=== PATIENT | female | born 1985 | race American Indian/Alaskan Native ===

== ENCOUNTER 2017-06-19 07:44 | Emergency (ER) | payer OTHER ==
--- NOTE | 2017-06-19 08:43 | Emergency Department Report ---
Minor Respiratory - HPI Chief Complaint: Upper Respiratory Infection Stated Complaint: COUGH Time Seen by Provider: 06/19/17 08:41 Duration: 1 week Pain Location: Chest Severity: moderate Minor Respiratory: Yes Rhinorrhea, Yes Able to Tolerate Fluids, Yes Cough, No Sore Throat, No Ear Pain, No Sick Contacts, No Hemoptysis, No Chest Pain, No Shortness of Breath, No Fever Other History: 32-year-old female past medical history none presents with complaint of 5-7 days of persistent cough. Patient states that after coughing fits she get slightly nauseous. States it is keeping her up at night. Denies any sore throat earache diarrhea rash body aches. Patient states she is taking multiple gklc-nin-rulkowd medicines including TheraFlu and Claritin for her symptoms. ED Review of Systems ROS: Stated complaint: COUGH Other details as noted in HPI Constitutional: denies: chills, fever Eyes: denies: eye pain, eye discharge, vision change ENT: denies: ear pain, throat pain Respiratory: cough. denies: shortness of breath, wheezing Cardiovascular: denies: chest pain, palpitations Endocrine: no symptoms reported Gastrointestinal: denies: abdominal pain, nausea, diarrhea Genitourinary: denies: urgency, dysuria, discharge Musculoskeletal: denies: back pain, joint swelling, arthralgia Skin: denies: rash, lesions Neurological: denies: headache, weakness, paresthesias Psychiatric: denies: anxiety, depression Hematological/Lymphatic: denies: easy bleeding, easy bruising ED Past Medical Hx - Past Medical History Previous Medical History?: No - Surgical History Past Surgical History?: No - Social History Smoking Status: Never Smoker Substance Use Type: Alcohol - Medications Home Medications: Home Medications Medication Instructions Recorded Confirmed Last Taken Type Ciprofloxacin HCl [Cipro] 500 mg PO BID 5 Days tablet 12/16/12 Unknown Rx Phenazopyridine [Pyridium] 200 mg PO BID 2 Days tablet 12/16/12 Unknown Rx diphenhydrAMINE [Benadryl] 25 mg PO Q6HR PRN #20 capsule 09/21/13 Unknown Rx predniSONE [Deltasone] 20 mg PO QDAY #5 tab 09/21/13 Unknown Rx Albuterol Sulfate [Ventolin HFA] 2 puff IH Q4H PRN #1 hfa.aer.ad 06/19/17 Unknown Rx Benzonatate [Tessalon Perles] 100 mg PO Q8HR PRN #30 capsule 06/19/17 Unknown Rx Brompheniramine/Pseudoephed/Dm 10 ml PO Q4H PRN #1 syrup 06/19/17 Unknown Rx [Oqebrupwuc-Rhiacawwvtr-Cq Syr] Famotidine [Pepcid] 20 mg PO BID PRN #30 tablet 06/19/17 Unknown Rx predniSONE [Deltasone] 40 mg PO QDAY #8 tab 06/19/17 Unknown Rx Minor Respiratory Exam - Exam General: Vital signs noted. No distress. Alert and acting appropriately. HEENT: Yes Moist Mucous Membranes, No Pharyngeal Erythema, No Pharyngeal Exudates, No Rhinorrhea, No Conjuctival Injection, No Frontal Tenderness, No Maxillary Tenderness Ear: Neither TM Bulge, Neither TM Erythema, Neither EAC Pain, Neither EAC Discharge Neck: Yes Supple, No Adenopathy Lungs: Yes Good Air Exchange (lungs clear to auscultation bilateral lung berman) , No Wheezes, No Ronchi, No Stridor, No Cough, No Labored Respirations, No Retractions, No Use of Accessory Muscles, No Other Abnormal Lung Sounds Heart: Yes Regular, No Murmur Abdomen: Yes Normal Bowel Sounds (abdomen soft nontender nondistended), No Tenderness, No Peritoneal Signs Skin: No Rash, No Edema Neurologic: Alert and oriented, no deficits. Musculoskeletal: Unremarkable. ED Course Vital Signs 06/19/17 08:16 Temperature 89.4 F L Pulse Rate 62 Respiratory 16 Rate Blood Pressure 132/84 O2 Sat by Pulse 97 Oximetry ED Medical Decision Making - Medical Decision Making A/P: URI versus allergic rhinitis 1-Tessalon Perles, Bromfed, Ventolin inhaler, Pepcid, short course prednisone 2-vital signs stable before discharge [email or web address] 4- follow-up with primary care doctor Critical care attestation.: If time is entered above; I have spent that time in minutes in the direct care of this critically ill patient, excluding procedure time. ED Disposition Clinical Impression: Allergic rhinitis Qualifiers: Allergic rhinitis trigger: unspecified Allergic rhinitis seasonality: unspecified seasonality Qualified Code(s): J30.9 - Allergic rhinitis, unspecified Upper respiratory infection Qualifiers: URI type: unspecified URI Qualified Code(s): J06.9 - Acute upper respiratory infection, unspecified Disposition: DC-01 TO HOME OR SELFCARE Is pt being admited?: No Does the pt Need Aspirin: No Condition: Stable Instructions: Cold Symptoms (ED), Allergic Rhinitis (ED), Acute Cough (ED) Prescriptions: Albuterol Sulfate [Ventolin HFA] 2 puff IH Q4H PRN #1 hfa.aer.ad PRN Reason: Shortness Of Breath Benzonatate [Tessalon Perles] 100 mg PO Q8HR PRN #30 capsule PRN Reason: Cough Brompheniramine/Pseudoephed/Dm [Aadspzpkpu-Ewdywqbhgmv-Fv Syr] 10 ml PO Q4H PRN #1 syrup PRN Reason: Cough Famotidine [Pepcid] 20 mg PO BID PRN #30 tablet PRN Reason: Cough predniSONE [Deltasone] 40 mg PO QDAY #8 tab Referrals: [facility] [Provider Group] - 3-5 Days Forms: Work/School Release Form(ED) Time of Disposition: 09:10
--- NOTE | 2017-06-19 08:56 | XRay Report ---
ROUTINE CHEST, TWO VIEWS: HISTORY: Persistent cough. The trachea, heart, mediastinal contour, lung berman and bony thorax are unremarkable. IMPRESSION: Unremarkable chest x-ray.
[2017-06-19 09:28] VITALS: BP 132/78
== END 2017-06-19 09:27 | disposition home or self-care (01) ==
LOC: ED 07:44
DX: J30.9 Allergic rhinitis, unspecified (principal); J06.9 Acute upper respiratory infection, unspecified
CPT/HCPCS: 71046; 99283

== ENCOUNTER 2017-12-03 07:29 | Emergency (ER) | payer SELFPAY ==
[2017-12-03 07:35] VITALS: BP 136/100
[2017-12-03] MEDS ORDERED: NACL 0.9% 1000 ML 1,000 ML IV ONE (07:35)
[2017-12-03 08:13] LABS: Bilirubin,Urine NEG (Negative); Blood,Urine NEG (Negative); Color,Urine Yellow (Yellow); Mucus,Urine FEW /HPF; Protein,Urine <15 mg/dL mg/dL (Negative); Urobilinogen,Urine < 2.0 mg/dL (<2.0)
[2017-12-03 08:15] LABS: Alanine Aminotransferase 11 units/L (7-56); BUN/Creatinine Ratio 10; Blood Urea Nitrogen 7 mg/dL (7-17); Calcium 9.3 mg/dL (8.4-10.2); Hemolysis Index 2
[2017-12-03 08:35] LABS: Hematocrit 35.7 % (30.3-42.9); Hemoglobin 11.1 gm/dl (10.1-14.3); Mean Corpuscular HGB Conc 31 % (30-34); Mean Corpuscular Hemoglobin 23 pg (28-32); Mean Corpuscular Volume 74 fl (79-97); Platelet Count 362 K/mm3 (140-440); Red Blood Count 4.85 M/mm3 (3.65-5.03); Red Cell Distribution Width 17.3 % (13.2-15.2)
[2017-12-03 09:54] LABS: Anisocytosis 1+; Basophils % (Manual) 0 % (0.0-1.8); Eosinophils % (Manual) 0 % (0.0-4.3); Hypochromasia 1+; Total Cells Counted 100
[2017-12-03 09:55] LABS: Platelet Estimate Cons
[2017-12-03] MEDS ORDERED: TORADOL IV ONE (10:17)
--- NOTE | 2017-12-03 10:23 | Emergency Department Report ---
ED General Adult HPI - General Chief complaint: Abdominal Pain Stated complaint: LEFT SIDE PAIN/RASH Time Seen by Provider: 12/03/17 09:48 Source: patient Mode of arrival: Ambulatory Limitations: No Limitations - History of Present Illness Initial comments: Patient presents to the emergency department with a chief complaint of left flank pain that has been on and off for the last 4 weeks. The patient states the pain starts in the left kidney area and radiates into her groin describes it as intense in nature was present. Patient denies any nausea vomiting. Patient also complains of her rash and decrease of her elbow and her back as well. Patient has chest pain, shortness breath, abdominal pain, headache. -: Gradual Location: back (left flank pain) Severity scale (0 -10): 3 Quality: dull Consistency: intermittent Improves with: none Worsens with: none Associated Symptoms: denies other symptoms Treatments Prior to Arrival: none - Related Data Previous Rx's Medication Instructions Recorded Last Taken Type Ciprofloxacin HCl [Cipro] 500 mg PO BID 5 Days tablet 12/16/12 Unknown Rx Phenazopyridine [Pyridium] 200 mg PO BID 2 Days tablet 12/16/12 Unknown Rx diphenhydrAMINE [Benadryl] 25 mg PO Q6HR PRN #20 capsule 09/21/13 Unknown Rx predniSONE [Deltasone] 20 mg PO QDAY #5 tab 09/21/13 Unknown Rx Albuterol Sulfate [Ventolin HFA] 2 puff IH Q4H PRN #1 hfa.aer.ad 06/19/17 Unknown Rx Benzonatate [Tessalon Perles] 100 mg PO Q8HR PRN #30 capsule 06/19/17 Unknown Rx Brompheniramine/Pseudoephed/Dm 10 ml PO Q4H PRN #1 syrup 06/19/17 Unknown Rx [Limavzuxai-Lihnomqmefm-Qa Syr] Famotidine [Pepcid] 20 mg PO BID PRN #30 tablet 06/19/17 Unknown Rx predniSONE [Deltasone] 40 mg PO QDAY #8 tab 06/19/17 Unknown Rx traMADol [Ultram] 50 mg PO Q6HR PRN #20 tablet 12/03/17 Unknown Rx Allergies Allergy/AdvReac Type Severity Reaction Status Date / Time No Known Allergies Allergy Verified 12/03/17 07:33 ED Review of Systems ROS: Stated complaint: LEFT SIDE PAIN/RASH Other details as noted in HPI Comment: All other systems reviewed and negative Constitutional: denies: chills, fever Eyes: denies: eye pain, eye discharge, vision change ENT: denies: ear pain, throat pain Respiratory: denies: cough, shortness of breath, wheezing Cardiovascular: denies: chest pain, palpitations Endocrine: no symptoms reported Gastrointestinal: denies: abdominal pain, nausea, diarrhea Genitourinary: denies: urgency, dysuria, discharge Musculoskeletal: denies: back pain, joint swelling, arthralgia Skin: denies: rash, lesions Neurological: denies: headache, weakness, paresthesias Psychiatric: denies: anxiety, depression Hematological/Lymphatic: denies: easy bleeding, easy bruising ED Past Medical Hx - Past Medical History Previous Medical History?: No - Surgical History Past Surgical History?: No - Social History Smoking Status: Never Smoker Substance Use Type: Alcohol - Medications Home Medications: Home Medications Medication Instructions Recorded Confirmed Last Taken Type Ciprofloxacin HCl [Cipro] 500 mg PO BID 5 Days tablet 12/16/12 Unknown Rx Phenazopyridine [Pyridium] 200 mg PO BID 2 Days tablet 12/16/12 Unknown Rx diphenhydrAMINE [Benadryl] 25 mg PO Q6HR PRN #20 capsule 09/21/13 Unknown Rx predniSONE [Deltasone] 20 mg PO QDAY #5 tab 09/21/13 Unknown Rx Albuterol Sulfate [Ventolin HFA] 2 puff IH Q4H PRN #1 hfa.aer.ad 06/19/17 Unknown Rx Benzonatate [Tessalon Perles] 100 mg PO Q8HR PRN #30 capsule 06/19/17 Unknown Rx Brompheniramine/Pseudoephed/Dm 10 ml PO Q4H PRN #1 syrup 06/19/17 Unknown Rx [Bltbtqhfwp-Cynnwulsjvn-Zd Syr] Famotidine [Pepcid] 20 mg PO BID PRN #30 tablet 06/19/17 Unknown Rx predniSONE [Deltasone] 40 mg PO QDAY #8 tab 06/19/17 Unknown Rx traMADol [Ultram] 50 mg PO Q6HR PRN #20 tablet 12/03/17 Unknown Rx ED Physical Exam - General Limitations: No Limitations General appearance: alert, in no apparent distress - Head Head exam: Present: atraumatic, normocephalic - Eye Eye exam: Present: normal appearance, PERRL, EOMI - ENT ENT exam: Present: mucous membranes moist - Neck Neck exam: Present: normal inspection - Respiratory Respiratory exam: Present: normal lung sounds bilaterally. Absent: respiratory distress, wheezes, rales - Cardiovascular Cardiovascular Exam: Present: regular rate, normal rhythm. Absent: systolic murmur, diastolic murmur, rubs, gallop - GI/Abdominal GI/Abdominal exam: Present: soft, normal bowel sounds. Absent: distended, tenderness - Extremities Exam Extremities exam: Present: normal inspection - Back Exam Back exam: Present: normal inspection - Neurological Exam Neurological exam: Present: alert, oriented X3, CN II-XII intact. Absent: motor sensory deficit - Psychiatric Psychiatric exam: Present: normal affect, normal mood - Skin Skin exam: Present: warm, dry, intact, normal color, rash (eczema like rash of the antecubital fossa) ED Course Vital Signs 12/03/17 12/03/17 07:33 09:49 Temperature 98.7 F Pulse Rate 82 Respiratory 20 16 Rate Blood Pressure 136/100 O2 Sat by Pulse 95 Oximetry ED Medical Decision Making - Lab Data Result diagrams: 12/03/17 07:46 12/03/17 07:46 - Medical Decision Making Discussed CT results with the patient and planned of care Critical care attestation.: If time is entered above; I have spent that time in minutes in the direct care of this critically ill patient, excluding procedure time. ED Disposition Clinical Impression: Flank pain, Diverticulosis Disposition: - TO HOME OR SELFCARE Is pt being admited?: No Does the pt Need Aspirin: No Condition: Stable Instructions: Flank Pain (ED), Diverticulosis (ED) Additional Instructions: return if worse Prescriptions: traMADol [Ultram] 50 mg PO Q6HR PRN #20 tablet PRN Reason: Pain Referrals: ANDRE SINGLETON MD [Staff Physician] - 3-5 Days [facility] [Provider Group] - 3-5 Days [facility] [Provider Group] - 3-5 Days Time of Disposition: 10:57
[2017-12-03] MEDS ORDERED: TORADOL IM ONE (10:38)
[2017-12-03] MEDS ORDERED: TORADOL ONE (10:46)
--- NOTE | 2017-12-03 10:47 | Cat Scan Report ---
CT ABDOMEN PELVIS WITHOUT CONTRAST: HISTORY: Left flank pain. COMPARISON: none. TECHNIQUE: Helical CT in 1.25mm intervals without IV contrast. Sagittal and coronal reconstructions. FINDINGS: Lung bases: Normal. Liver: Normal. Biliary system: Normal. Pancreas: Normal. Spleen: Normal. Kidneys/ureters/bladder: Normal. Adrenal glands: Normal. Aorta: Normal. Intestines: There are numerous diverticula throughout the length of the colon. No acute inflammatory changes are identified. The remaining bowel loops are unremarkable given no oral contrast was administered. Appendix: Normal. Pelvic viscera: Normal. Ascites: None. Adenopathy: None. Musculoskeletal: Normal. IMPRESSION: No acute process is identified. Diverticulosis of the colon.
== END 2017-12-03 11:21 | disposition home or self-care (01) ==
LOC: ED 07:29
DX: K57.90 Diverticulosis of intestine, part unspecified, without perforation or abscess without bleeding (principal)
CPT/HCPCS: 36415; 74176; 80053; 81001; 84703; 85007; 85025; 96372; 99284; J1885

== ENCOUNTER 2018-09-11 22:58 | Emergency (ER) | payer OTHER ==
[2018-09-11] MEDS ORDERED: ASPIRIN PO ONE (23:29)
[2018-09-11 23:51] LABS: Basophils % (Auto) 0.6 % (0.0-1.8); Eosinophils % (Auto) 0.7 % (0.0-4.3); Hematocrit 29.7 % (30.3-42.9); Hemoglobin 9.1 gm/dl (10.1-14.3); Lymphocytes # (Auto) 2.2 K/mm3 (1.2-5.4); Lymphocytes % (Auto) 45.9 % (13.4-35.0); Mean Corpuscular HGB Conc 31 % (30-34); Monocytes # (Auto) 0.4 K/mm3 (0.0-0.8); Monocytes % (Auto) 8.6 % (0.0-7.3); Platelet Count 337 K/mm3 (140-440); Red Blood Count 4.32 M/mm3 (3.65-5.03); Red Cell Distribution Width 18.7 % (13.2-15.2)
[2018-09-12 00:09] LABS: BUN/Creatinine Ratio 10; Blood Urea Nitrogen 8 mg/dL (7-17); Calcium 9.2 mg/dL (8.4-10.2); Hemolysis Index 2
[2018-09-12 00:26] LABS: Mean Corpuscular Volume 69 fl (79-97)
--- NOTE | 2018-09-12 01:48 | Emergency Department Report ---
ED Chest Pain HPI - General Chief Complaint: Chest Pain Stated Complaint: CP/L ARM NORI/NUMBNESS Time Seen by Provider: 09/12/18 01:06 Source: patient Mode of arrival: Ambulatory Limitations: No Limitations - History of Present Illness Initial Comments: 33-year-old -Citizen Of [place] female presents to the emergency department with complaint of some left-sided chest pain that radiates to her left arm and to her back that has been going on intermittently over the past week. The patient denies any shortness of breath, fever, nausea, vomiting or diaphoresis. The patient has a history of anxiety with panic attacks and said that she had a panic attack upon arrival to the emergency department and that is what appears to bring on her symptoms. The patient was recently seen at another hospital for the same set of symptoms and was told that it was related to gastritis or acid reflux and she was placed on some type of acid application spec. She's been taking this and says that it has helped with her pain. She denies any tobacco or illicit drug use. No recent travel or sick contacts at home. She has a primary care physician but cannot currently remember their name. - Related Data Previous Rx's Medication Instructions Recorded Last Taken Type Ciprofloxacin HCl [Cipro] 500 mg PO BID 5 Days tablet 12/16/12 Unknown Rx Phenazopyridine [Pyridium] 200 mg PO BID 2 Days tablet 12/16/12 Unknown Rx diphenhydrAMINE [Benadryl] 25 mg PO Q6HR PRN #20 capsule 09/21/13 Unknown Rx predniSONE [Deltasone] 20 mg PO QDAY #5 tab 09/21/13 Unknown Rx Albuterol Sulfate [Ventolin HFA] 2 puff IH Q4H PRN #1 hfa.aer.ad 06/19/17 Unknown Rx Benzonatate [Tessalon Perles] 100 mg PO Q8HR PRN #30 capsule 06/19/17 Unknown Rx Brompheniramine/Pseudoephed/Dm 10 ml PO Q4H PRN #1 syrup 06/19/17 Unknown Rx [Ikcjftjils-Czywqvlbfdx-Ik Syr] Famotidine [Pepcid] 20 mg PO BID PRN #30 tablet 06/19/17 Unknown Rx predniSONE [Deltasone] 40 mg PO QDAY #8 tab 06/19/17 Unknown Rx Triamcinolone 0.1% [Kenalog 0.1% 1 applic TP TID #1 tube 12/03/17 Unknown Rx CREAM] traMADol [Ultram] 50 mg PO Q6HR PRN #20 tablet 12/03/17 Unknown Rx Allergies Allergy/AdvReac Type Severity Reaction Status Date / Time No Known Allergies Allergy Verified 12/03/17 07:33 Heart Score - HEART Score History: Slightly suspicious EKG: Non-specific Age: < 45 Risk factors: No known risk factors Troponin: < normal limit HEART Score: 1 - Critical Actions Critical Actions: 0-3 pts:0.9-1.7%risk of adverse cardiac event.Candidate for discharge ED Review of Systems ROS: Stated complaint: CP/L ARM NORI/NUMBNESS Other details as noted in HPI Comment: All other systems reviewed and negative Constitutional: denies: fever Eyes: denies: eye pain, vision change ENT: denies: ear pain, throat pain Respiratory: denies: cough, shortness of breath Cardiovascular: chest pain. denies: syncope Gastrointestinal: denies: abdominal pain, vomiting Genitourinary: denies: dysuria, discharge Musculoskeletal: denies: back pain, arthralgia Skin: denies: rash, lesions Neurological: denies: headache, weakness Psychiatric: anxiety ED Past Medical Hx - Past Medical History Previous Medical History?: No - Surgical History Past Surgical History?: No - Social History Smoking Status: Never Smoker Substance Use Type: None - Medications Home Medications: Home Medications Medication Instructions Recorded Confirmed Last Taken Type Ciprofloxacin HCl [Cipro] 500 mg PO BID 5 Days tablet 12/16/12 Unknown Rx Phenazopyridine [Pyridium] 200 mg PO BID 2 Days tablet 12/16/12 Unknown Rx diphenhydrAMINE [Benadryl] 25 mg PO Q6HR PRN #20 capsule 09/21/13 Unknown Rx predniSONE [Deltasone] 20 mg PO QDAY #5 tab 09/21/13 Unknown Rx Albuterol Sulfate [Ventolin HFA] 2 puff IH Q4H PRN #1 hfa.aer.ad 06/19/17 Unknown Rx Benzonatate [Tessalon Perles] 100 mg PO Q8HR PRN #30 capsule 06/19/17 Unknown Rx Brompheniramine/Pseudoephed/Dm 10 ml PO Q4H PRN #1 syrup 06/19/17 Unknown Rx [Pipgpwtqfz-Ownafkfpett-Rv Syr] Famotidine [Pepcid] 20 mg PO BID PRN #30 tablet 06/19/17 Unknown Rx predniSONE [Deltasone] 40 mg PO QDAY #8 tab 06/19/17 Unknown Rx Triamcinolone 0.1% [Kenalog 0.1% 1 applic TP TID #1 tube 12/03/17 Unknown Rx CREAM] traMADol [Ultram] 50 mg PO Q6HR PRN #20 tablet 12/03/17 Unknown Rx ED Physical Exam - General Limitations: No Limitations - Other Other exam information: GENERAL: The patient is well-developed well-nourished. HENT: Normocephalic. Atraumatic. Patient has moist mucous membranes. EYES: Extraocular motions are intact. NECK: Supple. Trachea is midline. CHEST/LUNGS: Clear to auscultation. There is no respiratory distress noted. HEART/CARDIOVASCULAR: Regular. There is no tachycardia. There is no murmur. ABDOMEN: Abdomen is soft, nontender. Patient has normal bowel sounds. There is no abdominal distention. SKIN: Skin is warm and dry. NEURO: The patient is awake, alert, and oriented. The patient is cooperative. The patient has no focal neurologic deficits. The patient has normal speech. MUSCULOSKELETAL: There is no tenderness or deformity. There is no evidence of acute injury. ED Course Vital Signs 09/11/18 09/12/18 23:15 02:06 Temperature 98.2 F 98.6 F Pulse Rate 81 64 Respiratory 18 18 Rate Blood Pressure 130/75 Blood Pressure 127/63 [Right] O2 Sat by Pulse 100 100 Oximetry GIORGIO score - Giorgio Score Age > 65: (0) No Aspirin use within the Past 7 Days: (0) No 3 or more CAD Risk Factors: (0) No 2 or more Angina events in past 24 hrs: (1) Yes (if angina) Known CAD with more than 50% Stenosis: (0) No Elevated Cardiac Markers: (0) No ST Deviation Greater than 0.5mm: (0) No GIORGIO Score: 1 ED Medical Decision Making - Lab Data Result diagrams: 09/11/18 23:31 09/11/18 23:31 - EKG Data -: EKG Interpreted by Me EKG shows normal: sinus rhythm, axis, intervals, QRS complexes, ST-T waves (t wave inversion to anterior leads) Rate: normal - EKG Data When compared to previous EKG there are: previous EKG unavailable Interpretation: other (sinus at 82 bpm, t wave inversions anterior leads. No STEMI) - Radiology Data Radiology results: image reviewed interpreted by me: Chest x-ray does not show any acute process. There are no pleural effusions, obvious pneumonia and there is no pneumothorax. - Medical Decision Making Patient presents to emergency department with a complaint of some left-sided chest pain that radiates down the left arm. It is intermittent but at the time of my examination she is asymptomatic. Patient admits to a history of significant anxiety and that the pain comes on when she is having a panic attack, which she says that she had prior to arrival and upon arrival. Patient has almost no risk factors for coronary artery disease. She had an EKG that does not show any signs of ST elevation [place], ischemia or dysrhythmia. Chest x- ray does not show any pleural effusions, pneumothorax, pneumonia, focal consolidation, or any other acute process. Patient's labs have been unremarkable including a CBC, metabolic panel and a troponin. Her vital signs and stable throughout her ED course. She is low on the heart score criteria and GIORGIO score. The patient appears safe for discharge home at this time. She has been given a referral for cardiology and encouraged to follow up with primary care. She will return to the ER with any worsening of her symptoms or any acute distress. - Differential Diagnosis anxiety, dysrhythmia, [place] Critical Care Time: No Critical care attestation.: If time is entered above; I have spent that time in minutes in the direct care of this critically ill patient, excluding procedure time. ED Disposition Clinical Impression: Intermittent chest pain, Anxiety Disposition: - TO HOME OR SELFCARE Is pt being admited?: No Condition: Stable Instructions: Chest Pain (ED), Anxiety (ED) Additional Instructions: Please follow-up with your primary care physician in the next few days. I am also giving you a referral for a local picker tender helper, Dr. Smith, to follow up regarding your intermittent chest pains. Return to the emergency department with any return of your chest pain, worsening of your symptoms, if any acute distress. Referrals: LAYLA SMITH MD [Staff Physician] - 3-5 Days Time of Disposition: 01:49
[2018-09-12 02:06] VITALS: BP 127/63
--- NOTE | 2018-09-12 02:09 | XRay Report ---
PROCEDURE: XR CHEST 1V AP TECHNIQUE: Chest radiograph single view. HISTORY: Chest Pain COMPARISONS: 06/19/2017 . FINDINGS: Heart: Normal. Mediastinum/Vessels: Normal. Lungs/Pleural space: Normal. Bony thorax: No acute osseous abnormality. Life support devices: None. IMPRESSION: No acute cardiopulmonary abnormality. This document is electronically signed by Antonio Johnson MD., September 12 2018 02:07:05 AM ET
== END 2018-09-12 02:08 | disposition home or self-care (01) ==
LOC: ED 22:58
DX: R07.89 Other chest pain (principal); F41.9 Anxiety disorder, unspecified; Z79.899 Other long term (current) drug therapy
CPT/HCPCS: 36415; 71045; 80048; 84484; 84703; 85025; 93005; 93010